=== PATIENT | female | born 1965 | race Caucasian/White ===

== ENCOUNTER 2017-10-10 10:06 | Emergency (ER) | payer OTHER ==
[~2017-10-10] VITALS: Ht 160 cm; Wt 90.7 kg
[~2017-10-10 10:06] MED LIST: ALBU90OI INH; DIAZ5 PO; HYDACE5325 PO; HYDPAM25 PO; IBUP600 PO; LEVSOD100 PO; LEVSOD75 PO; PROZAC20 MG PO; Vibramycin100 MG PO; Zithromax250 MG PO
[2017-10-10 11:02] LABS: BASOPHILS ABSOLUTE AUTO 0.02 K/mm3 (0.00-0.23); BASOPHILS PERCENT AUTO 0 % (0-2); EOSINOPHILS ABSOLUTE AUTO 0.12 K/mm3 (0.00-0.68); EOSINOPHILS PERCENT AUTO 1 % (0-6); Hematocrit 46.2 % (33.0-51.0); Hemoglobin 15.5 g/dL (11.5-16.0); IMMATURE GRAN ABSOLUTE AUTO 0.07 K/mm3 (0.00-0.10); IMMATURE GRAN PERCENT AUTO 1 % (0-1); LYMPHOCYTES ABSOLUTE AUTO 2.79 K/mm3 (0.84-5.20); LYMPHOCYTES PERCENT AUTO 22 % (21-46); MONOCYTES PERCENT AUTO 6 % (4-13); Mean Corpuscular HGB 30.6 pg (26.0-34.0); Mean Corpuscular HGB Conc 33.5 g/dL (31.5-36.5); Mean Corpuscular Volume 91 fL (80-100); Mean Platelet Volume 10.2 fL (9.1-12.4); NEUTROPHILS ABSOLUTE AUTO 8.92 K/mm3 (1.96-9.15); NEUTROPHILS PERCENT AUTO 71 % (41-73); Platelet Count 315 K/mm3 (150-400); RDW Coefficient Variation 12.6 % (11.7-14.2); RDW Standard Deviation 41.9 fL (35.1-46.3); Red Blood Cell Count 5.07 M/mm3 (3.80-5.20); White Blood Cell Count 12.62 K/mm3 (4.00-11.30)
[2017-10-10 11:19] LABS: Alanine Aminotransfer (ALT/SGP 64 U/L (12-78); Albumin, Blood 3.9 g/dL (3.4-5.0); Alk Phos 93 U/L (50-136); Anion Gap 9 mmol/L (6-16); Aspartate Aminotrans (AST/SGOT 30 U/L (12-37); Bilirubin, Total 0.4 mg/dL (0.1-1.0); Blood Urea Nitrogen 20 mg/dL (8-24); Bun/Creatinine Ratio 22.4 (12.0-20.0); CO2, Blood 25 mmol/L (21-32); Calcium, Blood 8.8 mg/dL (8.5-10.1); Chloride, Blood 104 mmol/L (98-108); Creatinine, Blood 0.89 mg/dL (0.40-1.00); Globulin, Blood 4.1 g/dL (2.2-4.0); Glomerular Filtration Rate >60 (60-); Glucose, Blood 97 mg/dL (70-99); Potassium, Blood 3.7 mmol/L (3.5-5.5); Sodium, Blood 138 mmol/L (136-145)
[2017-10-10] MEDS ORDERED: Zofran Odt4 MG SL (13:48)
== END 2017-10-10 14:02 | disposition home or self-care (01) ==
LOC: ER 10:06
PROVIDERS: Emergency Medicine
DX: A08.4 Viral intestinal infection, unspecified (principal); F17.200 Nicotine dependence, unspecified, uncomplicated; Z91.030 Bee allergy status; Z91.048 Other nonmedicinal substance allergy status; Z79.899 Other long term (current) drug therapy; Z90.710 Acquired absence of both cervix and uterus
CPT/HCPCS: 36415; 80053; 83690; 85025; 96361; 96374; 99283; J2405; J7030

== ENCOUNTER 2021-05-05 23:31 | Inpatient (IN) | payer OTHER ==
[~2021-05-05] VITALS: Ht 160 cm; Wt 98.6 kg
[~2021-05-05 23:31] MED LIST changes: +CYCL10 PO; +HYDR1TAB94 PO; +Norco 5-325 Ta1 EACH PO; +Zofran Odt4 MG SL
[2021-05-06 05:54] LABS: BASOPHILS ABSOLUTE AUTO 0.08 K/mm3 (0.00-0.23); BASOPHILS PERCENT AUTO 0 % (0-2); EOSINOPHILS ABSOLUTE AUTO 0.26 K/mm3 (0.00-0.68); EOSINOPHILS PERCENT AUTO 1 % (0-6); Hemoglobin 12.5 g/dL (11.5-16.0); IMMATURE GRAN ABSOLUTE AUTO 0.37 K/mm3 (0.00-0.10); IMMATURE GRAN PERCENT AUTO 2 % (0-1); LYMPHOCYTES ABSOLUTE AUTO 2.21 K/mm3 (0.84-5.20); LYMPHOCYTES PERCENT AUTO 12 % (21-46); MONOCYTES ABSOLUTE AUTO 1.46 K/mm3 (0.16-1.47); MONOCYTES PERCENT AUTO 8 % (4-13); Mean Corpuscular HGB Conc 32.1 g/dL (31.5-36.5); Mean Corpuscular Volume 94 fL (80-100); Mean Platelet Volume 10.3 fL (9.1-12.4); NEUTROPHILS ABSOLUTE AUTO 14.49 K/mm3 (1.96-9.15); NEUTROPHILS PERCENT AUTO 77 % (41-73); Platelet Count 453 K/mm3 (150-400); RDW Coefficient Variation 12.6 % (11.7-14.2); RDW Standard Deviation 42.8 fL (35.1-46.3); Red Blood Cell Count 4.17 M/mm3 (3.80-5.20); White Blood Cell Count 18.87 K/mm3 (4.00-11.30)
[2021-05-06 06:18] LABS: Anion Gap 5 mmol/L (6-16); Blood Urea Nitrogen 8 mg/dL (8-24); Bun/Creatinine Ratio 10.3 (12.0-20.0); CO2, Blood 29 mmol/L (21-32); Calcium, Blood 8.8 mg/dL (8.5-10.1); Chloride, Blood 106 mmol/L (98-108); Creatinine, Blood 0.78 mg/dL (0.40-1.00); Glomerular Filtration Rate >60 (60-); Glucose, Blood 113 mg/dL (70-99); Potassium, Blood 3.9 mmol/L (3.5-5.5); Sodium, Blood 140 mmol/L (136-145)
--- NOTE | 2021-05-06 18:21 | NUR ---
PT AOX4 AND WAS SETTLED INTO ROOM AT 1405. PT TREATED FOR PAIN PER EMAR. THROUGHOUT HER ASSESSMENT PT COMPLAINED OF HER NG TUBE AND WANTING TO EAT. PT MADE STATEMENTS SHE WOULD JUST GET FOOD IF NO ONE BROUGHT HER SOME. PT ALSO KEPT TELLING THIS [employer] SHE DID NOT WANT NG TUBE. PT WAS INSTRUCTED ON WHY SHE NEEDS AN NG TUBE WITH A SBO PT SEEMED TO UNDERSTAND. PT LATTER PULLED OUT NG TUB AND IV, CHARGE NURSE PUT IN NEW IV. PT WILL CONTINUE TO BE MONITORED.
[2021-05-06 21:45] LABS: C DIFFICILE DNA NEGATIVE (Negative)
--- NOTE | 2021-05-07 04:06 | NUR ---
SHIFT SUMMARY ADMITTED FOR POST-OP SBO VS ILEUS. FULL CODE. PLAN IS FOR NG TUBE TO RELEASE GAS, IV ANTIB RX, MX BOWEL FUNCTION, IV NUTRITION/NPO. PT DID REMOVE NG TUBE ON PREVIOUS SHIFT, SHE REFUSES TO HAVE IT REPLACED. IV ANTIBIOTICS ARE SCHEDULED. CLINIMIX/LIPIDS INFUSING ORDERED. WBC'S WERE ELEVATED, AWAITING MORNING LABS. ABD CT FOUND SEVERAL SMALL UNDRAINABLE ABSCESSES. DR GALEAS IS SURGICAL CONSULT, NO SURGERY PLANNED AT THIS TIME. NO NAUSEA REPORTED THIS SHIFT
[2021-05-07 06:20] LABS: Hematocrit 36.5 % (33.0-51.0); Hemoglobin 11.6 g/dL (11.5-16.0); Mean Corpuscular HGB 30.3 pg (26.0-34.0); Mean Corpuscular HGB Conc 31.8 g/dL (31.5-36.5); Mean Corpuscular Volume 95 fL (80-100); Mean Platelet Volume 10.7 fL (9.1-12.4); Platelet Count 410 K/mm3 (150-400); RDW Coefficient Variation 12.7 % (11.7-14.2); RDW Standard Deviation 43.6 fL (35.1-46.3); Red Blood Cell Count 3.83 M/mm3 (3.80-5.20); White Blood Cell Count 15.76 K/mm3 (4.00-11.30)
[2021-05-07 06:47] LABS: Albumin, Blood 2.4 g/dL (3.4-5.0); Anion Gap 4 mmol/L (6-16); Blood Urea Nitrogen 10 mg/dL (8-24); Bun/Creatinine Ratio 13.6 (12.0-20.0); CO2, Blood 30 mmol/L (21-32); Calcium, Blood 8.1 mg/dL (8.5-10.1); Chloride, Blood 105 mmol/L (98-108); Creatinine, Blood 0.74 mg/dL (0.40-1.00); Glomerular Filtration Rate >60 (60-); Glucose, Blood 106 mg/dL (70-99); Phosphorus, Blood 3.5 mg/dL (2.5-4.9); Potassium, Blood 3.5 mmol/L (3.5-5.5); Sodium, Blood 139 mmol/L (136-145); Triglycerides 127 mg/dL (30-160)
--- NOTE | 2021-05-07 18:21 | NUR ---
PT AOX4 NO ACUTE CHANGES. INDEPENDENT IN ROOM AND WALKS THE [address] WAY. PT TREATED FOR ABD PAIN PER EMAR. PT ADVANCED TO CLEAR LIQUID DIET. NO DISTRESS NOTED WILL CONTINUE TO MONITOR.
--- NOTE | 2021-05-08 00:14 | NUR ---
05/07/212016 PT LYING IN BED, REPORTS ABD PAIN, TOO SOON FOR PRN PAIN MED, WILL CALL DR TO GET SOMETHING FOR BREAKTHROUGH PAIN. HEALING ABD INCISION WITH LASHON. SCANT REDNESS AND SOME SCABBING. NO OTHER APPARENT SIGNS OF DISTRESS. CALL LIGHT IS IN REACH.
--- NOTE | 2021-05-08 00:37 | NUR ---
05/07/21 2200 PT LYING IN BED, EYES CLOSED, APPEARS TO BE RESTING. BREATHING IS EVEN, UNLABORED. NO APPARENT SIGNS OF DISTRESS. CALL LIGHT IS IN REACH.
--- NOTE | 2021-05-08 00:38 | NUR ---
PT LYING IN BED, EYES CLOSED, APPEARS TO BE RESTING. BREATHING IS EVEN, UNLABORED. NO APPARENT SIGNS OF DISTRESS. CALL LIGHT IS IN REACH.
--- NOTE | 2021-05-08 03:01 | NUR ---
PT LYING IN BED, EYES CLOSED, APPEARS TO BE RESTING. BREATHING IS EVEN, UNLABORED. NO APPARENT SIGNS OF DISTRESS. CALL LIGHT IS IN REACH.
--- NOTE | 2021-05-08 05:07 | NUR ---
0328 PT REQUESTED AND RECIEVED PAIN MEDS, WILL EVAL FOR EFFECT. NO OTHER APPARENT SIGNS OF DISTRESS. CALL LIGHT IS IN REACH.
--- NOTE | 2021-05-08 05:08 | NUR ---
PT IS AAO X 4, ON RA. PT HAS ABD PAIN, GOT FENTANYL AND MORPHINE. HEALING ABD INCISION WITH LASHON, SCANT REDNESS, AND SOME SCABBING.
--- NOTE | 2021-05-08 05:08 | NUR ---
PT LYING IN BED, EYES CLOSED, APPEARS TO BE RESTING. BREATHING IS EVEN, UNLABORED. NO APPARENT SIGNS OF DISTRESS. CALL LIGHT IS IN REACH. NO OTHER CHANGES THIS SHIFT.
[2021-05-08 08:29] LABS: Hematocrit 35.2 % (33.0-51.0); Hemoglobin 11.4 g/dL (11.5-16.0); Mean Corpuscular HGB 30.2 pg (26.0-34.0); Mean Corpuscular HGB Conc 32.4 g/dL (31.5-36.5); Mean Corpuscular Volume 93 fL (80-100); Mean Platelet Volume 10.3 fL (9.1-12.4); Platelet Count 410 K/mm3 (150-400); RDW Coefficient Variation 12.1 % (11.7-14.2); RDW Standard Deviation 41.9 fL (35.1-46.3); Red Blood Cell Count 3.77 M/mm3 (3.80-5.20); White Blood Cell Count 12.65 K/mm3 (4.00-11.30)
[2021-05-08 08:45] LABS: Anion Gap 2 mmol/L (6-16); Blood Urea Nitrogen 8 mg/dL (8-24); CO2, Blood 31 mmol/L (21-32); Calcium, Blood 8.2 mg/dL (8.5-10.1); Chloride, Blood 103 mmol/L (98-108); Creatinine, Blood 0.73 mg/dL (0.40-1.00); Glomerular Filtration Rate >60 (60-); Glucose, Blood 105 mg/dL (70-99); Potassium, Blood 4.1 mmol/L (3.5-5.5); Sodium, Blood 136 mmol/L (136-145)
[2021-05-08] MEDS ORDERED: VISBIOME 112.51 EACH PO (12:25)
[2021-05-08] MEDS ORDERED: AMOX875 PO (12:26)
--- NOTE | 2021-05-08 13:37 | NUR ---
PATIENT'S ABDOMINAL LASHON WERE REMOVED BEFORE HER DISCHARGE. 6 LASH[address] REMOV[address] TRIANA ORDERED THE REMOVAL.
== END 2021-05-08 13:08 | disposition home or self-care (01) | DRG 862 ==
LOC: ER 23:31 → MEDS 05-06 04:54
PROVIDERS: Internal Medicine; Student in an Organized Health Care Education/Training Program; Surgery; ADMIT Family Medicine
PROC: 0D9670Z Drainage of Stomach with Drainage Device, Via Natural or Artificial Opening (ICD-10-PCS; principal; 2021-05-07)
DX: T81.42XA Infection following a procedure, deep incisional surgical site, initial encounter (principal); A41.9 Sepsis, unspecified organism; K65.1 Peritoneal abscess; K56.609 Unspecified intestinal obstruction, unspecified as to partial versus complete obstruction; F41.9 Anxiety disorder, unspecified; F43.10 Post-traumatic stress disorder, unspecified; E03.9 Hypothyroidism, unspecified; F32.9 Major depressive disorder, single episode, unspecified; F17.210 Nicotine dependence, cigarettes, uncomplicated; Z91.030 Bee allergy status; Z91.09 Other allergy status, other than to drugs and biological substances; Z90.710 Acquired absence of both cervix and uterus; Z90.49 Acquired absence of other specified parts of digestive tract; Z98.890 Other specified postprocedural states; Y83.8 Other surgical procedures as the cause of abnormal reaction of the patient, or of later complication, without mention of misadventure at the time of the procedure
CPT/HCPCS: 36415; 71045; 74177; 80048; 80053; 80069; 81001; 83605; 83690; 83735; 84478; 85025; 85027; 87040; 87086; 87493; 96361; 96374; 96375; 97110; 97162; 97165; 97530; 97535; 99283-25; 99285-25; A9270; J0744; J1650; J2270; J2405; J3010; J7030; J7050; Q9967

== ENCOUNTER 2022-12-12 08:27 | Day surgery (SDC) | payer OTHER ==
[~2022-12-12] VITALS: Ht 160 cm; Wt 118.6 kg
[~2022-12-12 08:27] MED LIST changes: +AMOX875 PO; +AZIT250 PO; +CEPH500 PO; +LASIX20 M2 PO; +POTCHL20ER PO; +VISBIOME 112.51 EACH PO
[2022-12-12] MEDS ORDERED: DOXY100 (08:53)
[2022-12-12] MEDS ORDERED: LEVSOD100 (08:53)
== END 2022-12-12 10:09 | disposition home or self-care (01) ==
LOC: ORSCSDS 08:27
PROVIDERS: Student in an Organized Health Care Education/Training Program
PROC: 0DBN8ZX Excision of Sigmoid Colon, Via Natural or Artificial Opening Endoscopic, Diagnostic (ICD-10-PCS; principal; 2022-12-12 09:00)
DX: K59.00 Constipation, unspecified (principal); Z86.010 Personal history of colon polyps; D12.5 Benign neoplasm of sigmoid colon; I10 Essential (primary) hypertension; E66.01 Morbid (severe) obesity due to excess calories; Z68.42 Body mass index [BMI] 45.0-49.9, adult; B19.10 Unspecified viral hepatitis B without hepatic coma; K76.0 Fatty (change of) liver, not elsewhere classified; F17.210 Nicotine dependence, cigarettes, uncomplicated; Z79.899 Other long term (current) drug therapy
CPT/HCPCS: 88305; J2704; J7120

== ENCOUNTER 2025-06-02 20:29 | Emergency (ER) | payer OTHER ==
[~2025-06-02] VITALS: Ht 160 cm; Wt 77.1 kg
[~2025-06-02 20:29] MED LIST changes: +DOXY100; +LEVSOD100
[2025-06-02] MEDS ORDERED: DiphenhydrAMINE HCl 50 MG/ML 1ML Vial IV ONE (20:40)
[2025-06-02] MEDS ORDERED: Dexamethasone Sod Phos 10 MG/ML 1ML VIAL IV ONE (20:40)
[2025-06-02] MEDS ORDERED: NS 1,000 ML IV SCH (20:45)
[2025-06-02] MEDS ORDERED: PRED20 PO (21:34)
[2025-06-02] MEDS ORDERED: FAMO20 PO (21:34)
[2025-06-02] MEDS ORDERED: BENADRYL25 M1 PO (21:34)
[2025-06-02 22:14] VITALS: BP 137/95
== END 2025-06-02 22:41 | disposition home or self-care (01) ==
LOC: ER 20:29
DX: T63.441A Toxic effect of venom of bees, accidental (unintentional), initial encounter (principal); R07.0 Pain in throat; E03.9 Hypothyroidism, unspecified; F17.210 Nicotine dependence, cigarettes, uncomplicated; Z91.048 Other nonmedicinal substance allergy status; Z91.030 Bee allergy status; Z79.890 Hormone replacement therapy; Z79.899 Other long term (current) drug therapy
CPT/HCPCS: 96361; 96374; 96375; 99282-25; J1100; J1200; J7030